=== PATIENT | male | born 1970 | race Asian ===

== ENCOUNTER 2020-06-29 07:40 | Emergency (ER) | payer OTHER ==
--- OUTSIDE RECORDS SUMMARY | 2020-06-29 07:49 | XMS REPORT | Continuity of Care Document ---
:1970 Author Organization [facility] t Address [address] [place] [address] Dr. Benitez. [address] [place] [id number] Care Team Providers Name Role Phone Nikhil RICHARDSON Attending Clinician Unavailable Problems This patient has no known problems. Allergies, Adverse Reactions, Alerts This patient has no known allergies or adverse reactions. Medications This patient has no known medications. Procedures This patient has no known procedures. Encounters Start End Encounter Admission Attending Care Care Encounter Source Date/Time Date/Time Type Type Clinicians Facility Department ID 2020-04-20 2020-04-20 Outpatient GRACY RICHARDSON [facility] [id number] Access 00:00:00 00:00:00 [facility] Results This patient has no known results.
--- OUTSIDE RECORDS SUMMARY | 2020-06-29 07:49 | XMS REPORT | Continuity of Care Document ---
:1970 Author Organization [facility] Address [address] [place] [address] Phone Care Team Providers Name Role Phone No Information Unavailable Unavailable Allergies, Adverse Reactions, Alerts Substance Reaction Status Criticality No Information Medications Medication Instructions Dosage Effective Dates Status Comment s (start - stop) lovastatin 40 mg take 1 tablet by Oral - Activ e tablet route with the evening meal 1 time per day --please provide patient education Norvasc 5 mg tablet take 1 tablet by Oral - Ac tive route 1 time per day --please provide patient education-- aspirin 81 mg chew 1 tablet (81 mg) - Active chewable tablet by oral route once daily Problems Condition Effective Dates (start - stop) Clinical Status C omments No Information Procedures Procedure Date nfectious agent detection by nucleic acid (DNA or OFFICE/OUTPATIENT VISIT EST Results Test Name Date and Time Measure Units Reference Range Abnormal Flag St atus Comments Panel Description: SARS-CoV-2 (COVID-19) RNA [Presence] in U nspecified Final specimen by MAYURI with probe detection SARS-CoV-2, MAYURI Not Not Final Test ing was performed 00:00:00 Detected Detected using the Apt mariaa SARS-CoV-2 assay .This test was develop ed and its performance characteristics determinedby [employer]. Th is test has not been FDA cleared orapprov ed. This test has be en authorized by RONALD Storey under an Emergency UseAuthorization (EUA). This test is onl y authorized for t he duration oftime the declaration that circumstances ex ist justifying theauthorization of the emergency use of in vitro diagnostic tests fordetection of SARS-CoV-2 virus and/or diagnosis of COV ID-19 infectionunder s ection 564(b)(1) of the Act, 21 U.S.C. 360bbb-3(b)(1), unlessthe author ization is terminated or revoked sooner.W hen diagnostic testi ng is negative, the possibility of a falsenegative re sult should be consid ered in the context of a patient'srecent exposures and th e presence of clin ical signs and symptomsconsiste nt with COVID-19. An ind ividual without symptoms of COVID-19and who is not shedding SARS-Co V-2 virus would expe ct to have anegative ( not detected) result in this assay.
<b r/>Perf ormed by:
Afsaneh Johsua (HD)<br/ >
Panel Description: SARS-CoV-2 (COVID-19) RNA [Presence] in U nspecified Final specimen by MAYURI with probe detection SARS-CoV-2, MAYURI Detected Not Detected A Final Testing was performed 00:00:00 using the Aptim a SARS-CoV-2 assay .This test was develop ed and its performance characteristics determinedby [employer]. Th is test has not been FDA cleared orapproved. This test has been authori zed by FDA under an Emily rgency UseAuthorization (EUA). This test is onl y authorized for t he duration oftime the declaration that circumstances ex ist justifying theauthorization of the emergency use of in vitro diagnostic tests fordetection of SARS-CoV-2 virus and/or diagnosis of COV ID-19 infectionunder s ection 564(b)(1) of the Act, 21 U.S.C. 360bbb-3( b)(1), unlessthe author ization is terminated or revoked sooner.When diag nostic testing is negat guerita, the possibility of a falsenegative re sult should be consid ered in the context of a patient'srecent exposures and th e presence of clin ical signs and symptomsconsiste nt with COVID-19. An ind ividual without symptoms of COVID-19and who is not shedding SARS-Co V-2 virus would expe ct to have anegative ( not detected) result in this assay.
<b r/>Perfo rmed by:
Lab Chasity Harrison (HD)<br/ >
NOTE: This patient has pending results not included in this document. Advance Directives Directive Yes / No Effective Date File Name No Information Encounters Encounter Practice Location Reason(s) Diagnoses Date Provider Provide rs Description For Visit Copied on [facility] No Information No [facility], [address], [facility], tel:[phone] [facility] No Information RICHARDSON [facility], 400 [facility] ANCILLARY SPECIALIST PUJA. 400 [facility] 0 [facility], [place], [place], [facility], [id number], tel: [place]. [phone] tel:[phone] OFFICE/OUTPA [facility] COVID-19 COVID-19 Acute Mar- JONAH AVILA VISIT [facility], 400 [facility] ANCILLARY SPECIALIST test Respiratory 09433 EST [facility] results [facility] 0 [facility], (chief DR, [place] [address], [place], complaint) [place], [place], [address] [place] [id number], tel: [place]. [phone] tel:[phone] [facility] No Information Mar- No [facility], [address], [facility], tel: [phone] [facility] No Information RICHARDSON [facility], 400 PUJA. [address], [place], [place], [facility], [id number], tel: US. [phone] tel:[phone] [facility] No Information Ted-2 NEGRO lt, 400 [facility] KATELINE. [facility] 9 400 [facility], [place], [address], [place] [id number], tel: [place]. [phone] tel: [phone] [facility] Vitamin D Ted-1 NEGRO lth, 400 [facility] deficiency, 9-201 KATELINE. [facility] unspecified 9 400 [facility], [id number] [facility], for [place], [place], [place], [address], [place] exam w [id number], tel: abnormal [place]. [phone] findings tel: [phone] for screening for malignant neoplasm of prostate IES18Uazh mass index (BMI) 23.0-23.9, adult ICD10 [facility] Essential Ted-1 SHANKS lth, 400 [facility] ANCILLARY SPECIALIST (primary) 9-201 SOLA. . [facility] hypertension [address] [place], [address] [place] [address], [address], [place] tel:[phone] [facility] Hyperlipidemia Ted-1 KRUSLESKI lth, 400 [facility] , unspecified 9- JAD. . [facility] ICD10 [address] [place], [address], [place] tel: [phone] [facility] No Information Dec-2 NEGRO lth, 400 [facility] 0-201 KATELINE. [facility] 8 400 [facility], [facility], [place], [address], [place] [id number], tel: US. [phone] tel: [phone] [facility] Body mass Dec-1 NEGRO lth, 400 [facility] ANCILLARY SPECIALIST index (BMI) 9-201 KATELINE. [facility] 23.0-23.9, 8 400 [facility], adult ICD10 [facility], [place], [address], [place] [id number], tel: US. [phone] tel: [phone] [facility] Hyperlipidemia Dec-1 KRUSLESKI lth, 400 [facility] , unspecified 9-201 JAD. . [facility] ICD10 [address] [place], [address], [place] tel: [phone] [facility] Essential Dec-1 SHANKS lth, 400 [facility] ANCILLARY SPECIALIST (primary) 9-201 SOLA. . [facility] hypertension [address], ICD10 [place], [facility], tel: [phone] [facility] No Information Apr-0 NEGRO lth, 400 [facility] ANCILLARY SPECIALIST 2-201 KATELINE. [facility] 8 400 [facility], [place], [place], [place], [facility], [id number], tel: US. [phone] tel:[phone] [facility] Body mass Mar-2 ENGRO lth, 400 [facility] ANCILLARY SPECIALIST index (BMI) 1-201 KATELINE. [facility] 23.0-23.9, 8 400 [facility], adult ICD10 [place], [place], [place], [facility], [id number], tel: US. [phone] tel: [phone] [facility] Essential Mar-2 SHANKS lth, 400 [facility] ANCILLARY SPECIALIST (primary) 1-201 SOLA. . [facility] hypertension [address] [place], ICD10 [place], [place], [facility], tel: [phone] [facility] Hyperlipidemia Mar-2 KRUSLESKI lth, 400 [facility] ANCILLARY SPECIALIST , unspecified 1-201 JAD. . [facility] ICD10 [address] [place], [place], [facility], tel: [phone] [facility] No Information Stuart-0 SHANKS lth, 400 [facility] ANCILLARY SPECIALIST 9-201 SOLA. . [address], [facility], tel: [phone] [facility] No Information Stuart-0 SHANKS lth, 400 [facility] ANCILLARY SPECIALIST 6-201 SOLA. . [address], [facility], tel: [phone] [facility] Hyperlipidemia Stuart-0 KRUSLESKI lth, 400 [facility] ANCILLARY SPECIALIST , unspecified 6-201 JAD. . [facility] ICD10 [address] [place] [address], [facility], tel: [phone] [facility] No Information May-2 SHANKS lth, 400 [facility] ANCILLARY SPECIALIST 7-201 SOLA. . [address], [address], [facility]: [phone] [facility] Information May-2 SHANKS lth, 400 [facility] ANCILLARY SPECIALIST 6-201 SOLA. . [address], [address], tel: [phone] [facility] Essential May-2 SHANKS lth, 400 [facility] ANCILLARY SPECIALIST (primary) 2-201 SOLA. . [facility] hypertension 7 [place], [id number] [place], [facility] [place], abnormal [address], [place] findings of tel: blood [phone] chemistry ICD10 [facility] Hyperlipidemia May-2 KRUSLESKI lth, 400 [facility] ANCILLARY SPECIALIST , unspecified 2-201 JAD. . [facility] ICD10 [address] [place] [address], [address], tel: [phone] [facility] No Information May-1 SHANKS lth, 400 [facility] ANCILLARY SPECIALIST 8-201 SOLA. . [address], [address], tel: [phone] [facility] No Information May-1 SHANKS lth, 400 [facility] ANCILLARY SPECIALIST 6-201 SOLA. . [address], [address], tel: [phone] [facility] Hyperlipidemia May-1 KRUSLESKI lth, 400 [facility] ANCILLARY SPECIALIST , unspecified 1-201 JAD. . [facility] ICD10 [address] [place] [address], [place], [address], tel: [phone] [facility] Essential May-1 SHANKS lth, 400 [facility] ANCILLARY SPECIALIST (primary) 1-201 SOLA. . [facility] hypertension [address] [place], ICD10 [place], [address], [place] tel: [phone] [facility] No Information Mar-2 KRUSLESKI lth, 400 [facility] ANCILLARY SPECIALIST 7-201 JAD. . [address], [address], tel: [phone] [facility] No Information Mar-1 KRUSLESKI lth, 400 [facility] ANCILLARY SPECIALIST 0-201 AJD. . [facility] [address] [place], [address], [place] tel: [phone] [facility] No Information Mar-0 VASILEUSTALIAKI [facility], 400 [facility] 5-201 DAVID. Estevez [facility] [address] [place], [address], [place] tel: [phone] [facility] Jayy Pure Mar-0 KRUSLESKI [facility], 400 [facility] ANCILLARY SPECIALIST hypercholester 4-201 DAVID. Estevez [facility] olemiaEssentia 6 [place], (primary) [facility], ICD10 [address], [place] tel: [phone] Family History Family Member Diagnosis Age At Onset No Information Immunizations Vaccine Date Status Comments No Information Payers Payer name Insurance type Covered republican ID Authorization(s ) No Information Social History Type Description Quantity Date Captured Comments Alcohol Use Details Unknown Caffeine Use Details Unknown Tobacco Use Status No Information Smoking Status No Information Sex Male Vital Signs Date / Height Weight BMI Pulse Blood Temperature Respiratory Body Head BMI Pulse Inhaled Time: Rate Pressure Rate Surface Circumference percenti le Ox Ox Area 62.00 128.20 23.4 78 154/98 97.80 F 16 /min -2018 in lbs 0 /min mm[Hg] 11:55 kg/m AM eter (2) 62.50 130.00 23.4 70 136/84 96.20 F 18 /min -2017 in lbs 0 /min mm[Hg] 7:15 kg/m AM eter () 62.00 129.00 23.6 70 152/97 96.50 F 18 /min -2017 in lbs 0 /min mm[Hg] 7:27 kg/m AM eter () 62.00 126.80 23.2 68 140/94 96.90 F 18 /min -2016 in lbs 0 /min mm[Hg] 10:17 kg/m AM eter (2) 130/86 -2017 mm[Hg] 10:32 AM 62.00 123.60 22.6 63 133/88 96.60 F 18 /min in lbs 0 /min mm[Hg] 10:57 kg/m AM kleber (2) Chief Complaint And Reason For Visit No Information Reason For Referral Reason For Referral No Information Plan Of Treatment Date Type Action Status No Information History Of Present Illness Encounter Date Complaint History Of Present I llness COVID-19 test results This is a teleheal th visit. Patient provided verbal consent to th is encounter. Patient understands the limi tations of such a visit.. Called patient with regards to COVID-19 test results. Patient hailey re that this encounter is primarily to discuss test results; and that patient is to follow up with PCP for further plan of care. Reports un known exposure to known case of COVID-19. Current ly having symptoms of cough Functional Status Date Functional Assessment No Information Medications Administered Medication Instructions Dosage Effective Dates (start - stop) Sta tus Comments No Information Instructions Date Instruction Additional Informati on No Information Assessments Type Assessment Date assessment COVID-19 Acute Respiratory Disease assessment Cough Goals Health Concern Goal Type Priority Status Date No Information Medical Equipment Description Device Laneview Device Identifier Effective Tom es (start - stop) Status No Information Mental Status Date Cognitive Assessment No Information Health Concerns Observation Date No Information Concern Status Date No Information
[2020-06-29] MEDS ORDERED: NA CHLORIDE 0.9% 1,000 ML ONE (08:20)
[2020-06-29] MEDS ORDERED: MECLIZINE HCL 12.5 MG TAB ONE (08:20)
[2020-06-29] MEDS ORDERED: LABETALOL HCL 100 MG/20 ML ONE (08:20)
[2020-06-29] MEDS ORDERED: ONDANSETRON 4 MG/2 ML VIAL ONE (08:20)
[2020-06-29] MEDS ORDERED: LABETALOL 20 MG/4ML SYRINGE IV ONE ×3 (08:21→11:16)
[2020-06-29 08:26] LABS: Absolute Lymphocytes (CBC) 1.9 K/uL (0.7-4.9); Basophils % 0.4 % (0-1.3); Hematocrit 44.3 % (39.6-49.0); Lymphocytes % 33.6 % (15.3-44.8); MPV 7.4 fL (7.6-11.3); RBC Red Blood Cell Count 4.98 M/uL (4.33-5.43)
--- NOTE | 2020-06-29 08:43 | RAD REPORT ---
EXAM DESCRIPTION: Jacki Single View06/29/2020 8:18 am CLINICAL HISTORY: Cough COMPARISON: none FINDINGS: The lungs appear clear of acute infiltrate. The heart is normal size IMPRESSION: No acute abnormalities displayed
[2020-06-29 08:51] LABS: ALT/SGPT 34 U/L (12-78); AST/SGOT 22 U/L (15-37); Alkaline Phosphatase 59 U/L (45-117); BUN Blood Urea Nitrogen 14 mg/dL (7-18); Bicarbonate 23 mmol/L (21-32); Bilirubin Direct < 0.1 mg/dL (0-0.2); Bilirubin Total 0.4 mg/dL (0.2-1.0); Glucose Level 181 mg/dL (74-106); Magnesium 1.9 mg/dL (1.8-2.4); Potassium 3.2 mmol/L (3.5-5.1); Protein, Total 7.7 g/dL (6.4-8.2); Sodium Level 138 mmol/L (136-145); Troponin (Emerg Dept Use Only) < 0.02 ng/mL (0.0-0.045)
[2020-06-29 08:52] LABS: NT PRO-BNP < 5 pg/mL (<125)
--- NOTE | 2020-06-29 08:55 | RAD REPORT ---
EXAM DESCRIPTION: CT - Head Brain Wo Cont - 06/29/2020 8:32 am CLINICAL HISTORY: Dizziness COMPARISON: None. TECHNIQUE: Computed axial tomography of the head was obtained. IV contrast was not requested. All CT scans are performed using dose optimization technique as appropriate and may include automated exposure control or mA/KV adjustment according to patient size. FINDINGS: An intracranial bleed is not seen . The ventricles are normal in caliber. No extra-axial fluid collection is noted. Fluid within the sinuses/ mastoids is not seen. Moderate mucoperiosteal thickening left maxillary sin us compatible with chronic sinusitis IMPRESSION: No acute intracranial abnormality is seen. If patient's symptoms persist MRI of the bra in would be recommended.
--- NOTE | 2020-06-29 09:38 | ER ---
Nurse's Notes [facility] Name: Ike Neal Age: 50 yrs Sex: Male : 1970 Arrival Date: 06/29/2020 Time: 07:47 Bed 5 Private MD: Diagnosis: Essential (primary) hypertension;Dizziness and giddiness;Hypokalemia Presentation: 06/29 07:42 Chief complaint: EMS states: pt was fishing this morning, suddenly became nauseous, tw2 vomited, was sitting in truck when we arrived, he was diaphoretic and dizzy, states hx HTN, but has NOT taken his blood pressure medicine this morning, 185/120, hr 87, 100% RA. Coronavirus screen: At this time, the client does not indicate any symptoms associated with coronavirus-19. Ebola Screen: Patient denies travel to an Ebola-affected area in the 21 days before illness onset. Initial Sepsis Screen: Does the patient meet any 2 criteria? No. Patient's initial sepsis screen is negative. Does the patient have a suspected source of infection? No. Patient's initial sepsis screen is negative. Risk Assessment: Do you want to hurt yourself or someone else? Patient reports no desire to harm self or others. Onset of symptoms was June 29, 2020. 07:42 Method Of Arrival: EMS: [facility] tw2 07:42 Acuity: SMITH 3 tw2 Triage Assessment: 07:51 General: Appears in no apparent distress. slender, Behavior is calm, cooperative, tw2 appropriate for age. Pain: Denies pain. Derm: Skin is intact, is healthy with good turgor, is thin, Skin is clammy. Historical: - Allergies: 07:52 No Known Allergies; tw2 - Home Meds: 07:52 "unknown BP medicine" [Active]; tw2 - PMHx: 07:52 Hypertension; tw2 - Immunization history:: Adult Immunizations unknown. - Social history:: Smoking status: unknown. Screenin:47 Abuse screen: Denies threats or abuse. Denies injuries from another. Nutritional jl7 screening: No deficits noted. Tuberculosis screening: No symptoms or risk factors identified. Fall Risk None identified. Assessment: 07:51 General: Appears in no apparent distress. slender, Behavior is calm, cooperative, tw2 appropriate for age. Pain: Denies pain. Neuro: Level of Consciousness is awake, alert, obeys commands, Oriented to person, place. Cardiovascular: Heart tones S1 S2 Patient's skin is warm and dry. Respiratory: Airway is patent Respiratory effort is even, unlabored, Respiratory pattern is regular, symmetrical, Breath sounds are clear bilaterally. GI: Abdomen is flat, Bowel sounds present X 4 quads. Reports nausea, vomiting, "earlier but not now, i did throw up after i tried to drink some water" Patient currently denies abdominal pain. : No signs and/or symptoms were reported regarding the genitourinary system. EENT: No signs and/or symptoms were reported regarding the EENT system. Derm: Skin is intact, is healthy with good turgor, Skin is clammy, Skin temperature is warm. Musculoskeletal: Range of motion: intact in all extremities. 08:28 Reassessment: pt taken via stretcher to CT at this time. tw2 08:35 Reassessment: pt back from CT at this time., NAD. tw2 09:32 Reassessment: Patient appears in no apparent distress at this time. Patient and/or tw2 family updated on plan of care and expected duration. Pain level reassessed. Patient is alert, oriented x 3, equal unlabored respirations, skin warm/dry/pink. Patient states feeling better. Patient states symptoms have improved. 09:57 Reassessment: Pt will be discharged once BP has decreased. jl7 10:22 Reassessment: pt c/o "dizziness again", provider notified of pts condition and BP at 2 this time. 10:25 Reassessment: ERD at bedside. jl7 11:02 Reassessment: Patient appears in no apparent distress at this time. Patient and/or tw2 family updated on plan of care and expected duration. Pain level reassessed. Patient is alert, oriented x 3, equal unlabored respirations, skin warm/dry/pink. 11:17 Reassessment: US at bedside at this time. tw2 11:57 Reassessment: pt requests to get up and go to the restroom at this time, urine specimen tw2 cup provided, pt steady in gait, nad. 12:39 Reassessment: Patient appears in no apparent distress at this time. Patient and/or tw2 family updated on plan of care and expected duration. Pain level reassessed. Patient is alert, oriented x 3, equal unlabored respirations, skin warm/dry/pink. 12:44 Reassessment: pt states "i am ready to go home now", provider notified. tw2 13:10 Reassessment: Patient appears in no apparent distress at this time. Patient and/or tw2 family updated on plan of care and expected duration. Pain level reassessed. Patient is alert, oriented x 3, equal unlabored respirations, skin warm/dry/pink. 13:16 Reassessment: Patient appears in no apparent distress at this time. Patient and/or tw2 family updated on plan of care and expected duration. Pain level reassessed. Patient is alert, oriented x 3, equal unlabored respirations, skin warm/dry/pink. Vital Signs: 07:42 BP 165 / 101; Pulse 75; Resp 17; Temp 97.8(O); Pulse Ox 100% on R/A; Weight 58.06 kg tw2 (R); Height 5 ft. 4 in. (162.56 cm); Pain 0/10; 08:36 BP 170 / 106; Pulse 66; Resp 15 S; Pulse Ox 100% on R/A; jl7 08:45 BP 152 / 103; Pulse 74; Resp 17; Pulse Ox 100% on R/A; tw2 09:15 BP 161 / 107; Pulse 74; Resp 17; Pulse Ox 100% on R/A; tw2 09:27 BP 159 / 106; Pulse 78; Resp 17; Pulse Ox 100% on R/A; tw2 09:45 BP 161 / 110; Pulse 74; Resp 17; Pulse Ox 100% ; jl7 10:00 BP 171 / 109; Pulse 74; Resp 17; Pulse Ox 99% on R/A; tw2 10:21 BP 196 / 123; Pulse 72; Resp 15; Pulse Ox 100% ; jl7 10:28 BP 169 / 110 LA; Pulse 74; Resp 17; Pulse Ox 100% on R/A; tw2 10:28 BP 162 / 114 RA; Pulse 71; Resp 17; Pulse Ox 100% on R/A; tw2 10:45 BP 153 / 109; Pulse 64; Resp 17; Pulse Ox 100% on R/A; tw2 11:11 BP 141 / 99; Pulse 76; Resp 17; Pulse Ox 100% on R/A; tw2 11:30 BP 145 / 100; Pulse 83; Resp 16; Pulse Ox 100% on R/A; tw2 12:10 BP 164 / 104; Pulse 72; Resp 15; Pulse Ox 100% ; jl7 12:30 BP 157 / 107; Pulse 72; Resp 17; Pulse Ox 100% on R/A; tw2 12:45 BP 157 / 107; Pulse 77; Resp 16; Pulse Ox 100% on R/A; tw2 13:10 BP 149 / 108; Pulse 76; Resp 17; Pulse Ox 100% on R/A; tw2 07:42 Body Mass Index 21.97 (58.06 kg, 162.56 cm) tw2 07:42 provider notified tw2 ED Course: 07:44 Arm band placed on. tw2 07:47 Patient arrived in ED. aa5 07:47 Patient has correct armband on for positive identification. Placed in gown. Bed in low jl7 position. Call light in reach. Side rails up X 1. Pulse ox on. NIBP on. 07:48 Saray Prajapati, ROCK is Primary Nurse. tw2 07:48 Rafael Galindo MD is Attending Physician. swapna 07:51 Triage completed. tw2 08:00 Inserted saline lock: 20 gauge in right antecubital area, using aseptic technique. tw2 Blood collected. 08:05 EKG done, by ED staff, reviewed by Rafael Galindo MD. em1 08:30 CT completed. Patient tolerated procedure well. Patient moved to CT via stretcher. sw Patient moved back from CT. 08:49 CT Head Brain wo Cont In Process Unspecified. EDMS 09:36 Gabe Villar MD is Referral Physician. swapna 09:45 Awaiting: re-evaulation of BP and BP medication PRIOR to discharge. tw2 11:01 Aakash Hernandez MD is Hospitalizing Provider. swapna 11:56 Carotid Artery Bilateral In Process Unspecified. EDMS 13:02 Gabe Villar MD is Referral Physician. swapna 13:02 Rodney Hurley MD is Referral Physician. swapna 13:16 No provider procedures requiring assistance completed. IV discontinued, intact, tw2 bleeding controlled, No redness/swelling at site. Pressure dressing applied. Administered Medications: 08:13 Drug: Zofran (Ondansetron) 4 mg Route: IVP; Site: right antecubital; jl7 09:33 Follow up: Response: No adverse reaction tw2 08:15 Drug: NS 0.9% 1000 ml Route: IV; Rate: 125 ml/hr; Site: right antecubital; jl7 13:15 Follow up: Response: No adverse reaction; IV Status: Order to discontinue infusion tw2 08:17 Drug: Trandate 5 mg Route: IVP; Site: right antecubital; jl7 09:33 Follow up: Response: No adverse reaction; Blood pressure is unchanged tw2 08:20 Drug: NS 0.9% 500 ml Route: IV; Rate: bolus; Site: right antecubital; jl7 09:20 Follow up: Response: No adverse reaction; IV Status: Completed infusion; IV Intake: tw2 500ml 08:20 Drug: Meclizine 50 mg Route: PO; jl7 09:33 Follow up: Response: No adverse reaction; Marked relief of symptoms tw2 09:38 Drug: Trandate 20 mg Route: IVP; Site: right antecubital; tw2 10:22 Follow up: Response: No adverse reaction; Blood pressure is unchanged; provider tw2 notified. 09:38 Drug: Norvasc 10 mg Route: PO; tw2 10:23 Follow up: Response: No adverse reaction tw2 09:56 Drug: Potassium Effervescent Tablet 25 mEq Route: PO; jl7 10:23 Follow up: Response: No adverse reaction tw2 11:02 Drug: Aspirin 81 mg Route: PO; tw2 13:10 Follow up: Response: No adverse reaction tw2 11:02 Drug: foLIC Acid 1 mg Route: IVPB; Site: right antecubital; tw2 11:03 Follow up: IV Status: Completed infusion tw2 13:11 Follow up: Response: No adverse reaction tw2 11:08 Drug: Trandate 20 mg Route: IVP; Site: right antecubital; tw2 11:30 Follow up: Response: No adverse reaction; Blood pressure is unchanged; Blood pressure tw2 is unchanged, provider notified. Intake: 09:20 IV: 500ml; Total: 500ml. tw2 Outcome: 09:36 Discharge ordered by . swapna 11:01 Decision to Hospitalize by Provider. swapna 13:03 Discharge ordered by . swapna 13:16 Discharged to home ambulatory. tw2 13:16 Condition: stable 13:16 Discharge instructions given to patient, family, Instructed on discharge instructions, follow up and referral plans. medication usage, Demonstrated understanding of instructions, follow-up care, medications, Prescriptions given X 3. 13:16 Patient left the ED. tw2 Signatures: Dispatcher [employer] EDMS Rafael Galindo MD MD cha Martinez, Eric em1 Yara Garduno, RN RN aa5 Mis Ruff Tara RN RN tw2 Allan Kaba RN RN jl7
--- NOTE | 2020-06-29 09:38 | EDPHYS ---
Physician Documentation [facility] Name: Ike Neal Age: 50 yrs Sex: Male : 1970 Arrival Date: 06/29/2020 Time: 07:47 Bed 5 Private MD: DAVID Physician Rafael Galindo HPI: 06/29 08:00 This 50 yrs old Male presents to ER via EMS with complaints of Nausea/Vomiting. swapna 08:00 The patient presents to the emergency department with nausea, vomiting. Onset: The swapna symptoms/episode began/occurred just prior to arrival, this morning. Possible causes: vertigo. Historical: - Allergies: :52 No Known Allergies; tw2 - Home Meds: :52 "unknown BP medicine" [Active]; tw2 - PMHx: 07:52 Hypertension; tw2 - Immunization history:: Adult Immunizations unknown. - Social history:: Smoking status: unknown. ROS: 08:01 Constitutional: Negative for fever, chills, and weight loss, Eyes: Negative for injury, swapna pain, redness, and discharge, ENT: Negative for injury, pain, and discharge, Neck: Negative for injury, pain, and swelling, Cardiovascular: Negative for chest pain, palpitations, and edema, Respiratory: Negative for shortness of breath, cough, wheezing, and pleuritic chest pain, Abdomen/GI: Negative for abdominal pain, nausea, vomiting, diarrhea, and constipation, Back: Negative for injury and pain, : Negative for injury, bleeding, discharge, and swelling, MS/Extremity: Negative for injury and deformity, Skin: Negative for injury, rash, and discoloration, Psych: Negative for depression, anxiety, suicide ideation, homicidal ideation, and hallucinations, Allergy/Immunology: Negative for hives, rash, and allergies, Endocrine: Negative for neck swelling, polydipsia, polyuria, polyphagia, and marked weight changes, Hematologic/Lymphatic: Negative for swollen nodes, abnormal bleeding, and unusual bruising. 08:01 Neuro: Positive for dizziness. Exam: 08:01 Constitutional: This is a well developed, well nourished patient who is awake, alert, swapna and in no acute distress. Head/Face: Normocephalic, atraumatic. Eyes: Pupils equal round and reactive to light, extra-ocular motions intact. Lids and lashes normal. Conjunctiva and sclera are non-icteric and not injected. Cornea within normal limits. Periorbital areas with no swelling, redness, or edema. ENT: Nares patent. No nasal discharge, no septal abnormalities noted. Tympanic membranes are normal and external auditory canals are clear. Oropharynx with no redness, swelling, or masses, exudates, or evidence of obstruction, uvula midline. Mucous membranes moist. Neck: Trachea midline, no thyromegaly or masses palpated, and no cervical lymphadenopathy. Supple, full range of motion without nuchal rigidity, or vertebral point tenderness. No Meningismus. Chest/axilla: Normal chest wall appearance and motion. Nontender with no deformity. No lesions are appreciated. Cardiovascular: Regular rate and rhythm with a normal S1 and S2. No gallops, murmurs, or rubs. Normal PMI, no JVD. No pulse deficits. Respiratory: Lungs have equal breath sounds bilaterally, clear to auscultation and percussion. No rales, rhonchi or wheezes noted. No increased work of breathing, no retractions or nasal flaring. Abdomen/GI: Soft, non-tender, with normal bowel sounds. No distension or tympany. No guarding or rebound. No evidence of tenderness throughout. Back: No spinal tenderness. No costovertebral tenderness. Full range of motion. Skin: Warm, dry with normal turgor. Normal color with no rashes, no lesions, and no evidence of cellulitis. MS/ Extremity: Pulses equal, no cyanosis. Neurovascular intact. Full, normal range of motion. Neuro: Awake and alert, GCS 15, oriented to person, place, time, and situation. Cranial nerves II-XII grossly intact. Motor strength 5/5 in all extremities. Sensory grossly intact. Cerebellar exam normal. Normal gait. Psych: Awake, alert, with orientation to person, place and time. Behavior, mood, and affect are within normal limits. 08:01 Eyes: Pupils: no acute changes, equal, round, and reactive to light and accomodation, Extraocular movements: intact throughout, Conjunctiva: normal, no acute changes, Corneas: are normal, Nystagmus: is not appreciated, no acute changes. 08:01 Neck: External neck: is normal, C-spine: appears grossly normal, Thyroid: appears normal, Trachea: is midline with no obvious abnormalities, no acute changes, ROM/movement: is normal, no acute changes, Lymph nodes: no appreciated lymphadenopathy. 08:01 Cardiovascular: Rate: normal, Rhythm: regular, Pulses: Pulses are 4+ in bilateral radial, brachial, femoral, popliteal, posterior tibial and and dorsalis pedis arteries.. Heart sounds: normal, Edema: is not appreciated, JVD: is not appreciated. Vital Signs: 07:42 BP 165 / 101; Pulse 75; Resp 17; Temp 97.8(O); Pulse Ox 100% on R/A; Weight 58.06 kg tw2 (R); Height 5 ft. 4 in. (162.56 cm); Pain 0/10; 08:36 BP 170 / 106; Pulse 66; Resp 15 S; Pulse Ox 100% on R/A; jl7 08:45 BP 152 / 103; Pulse 74; Resp 17; Pulse Ox 100% on R/A; tw2 09:15 BP 161 / 107; Pulse 74; Resp 17; Pulse Ox 100% on R/A; tw2 09:27 BP 159 / 106; Pulse 78; Resp 17; Pulse Ox 100% on R/A; tw2 09:45 BP 161 / 110; Pulse 74; Resp 17; Pulse Ox 100% ; jl7 10:00 BP 171 / 109; Pulse 74; Resp 17; Pulse Ox 99% on R/A; tw2 10:21 BP 196 / 123; Pulse 72; Resp 15; Pulse Ox 100% ; jl7 10:28 BP 169 / 110 LA; Pulse 74; Resp 17; Pulse Ox 100% on R/A; tw2 10:28 BP 162 / 114 RA; Pulse 71; Resp 17; Pulse Ox 100% on R/A; tw2 10:45 BP 153 / 109; Pulse 64; Resp 17; Pulse Ox 100% on R/A; tw2 11:11 BP 141 / 99; Pulse 76; Resp 17; Pulse Ox 100% on R/A; tw2 11:30 BP 145 / 100; Pulse 83; Resp 16; Pulse Ox 100% on R/A; tw2 12:10 BP 164 / 104; Pulse 72; Resp 15; Pulse Ox 100% ; jl7 12:30 BP 157 / 107; Pulse 72; Resp 17; Pulse Ox 100% on R/A; tw2 12:45 BP 157 / 107; Pulse 77; Resp 16; Pulse Ox 100% on R/A; tw2 13:10 BP 149 / 108; Pulse 76; Resp 17; Pulse Ox 100% on R/A; tw2 07:42 Body Mass Index 21.97 (58.06 kg, 162.56 cm) tw2 07:42 provider notified tw2 MDM: 07:48 Patient medically screened. swapna 08:05 Differential diagnosis: gastritis. Differential diagnosis: cardiac arrhythmia, CVA, swapna generalized weakness, hypovolemia, idiopathic dizziness, near-syncope, TIA, vertigo. Data reviewed: vital signs, nurses notes, lab test result(s), EKG, radiologic studies, CT scan, plain films. Data interpreted: forepart laster: rate is 75 beats/min, rhythm is regular, Pulse oximetry: on room air is 100 %. Test interpretation: by ED physician or midlevel provider: ECG, plain radiologic studies. Counseling: I had a detailed discussion with the patient and/or guardian regarding: the historical points, exam findings, and any diagnostic results supporting the discharge/admit diagnosis, the presence of at least one elevated blood pressure reading (>120/80) during this emergency department visit, lab results, radiology results, the need for outpatient follow up, for definitive care, a neurologist. Medication response: Zofran markedly relieved the patient's nausea. meclizine. 09:34 ED course: improved, told bp meds are essential. [facility] 06/29 08:00 Order name: Basic Metabolic Panel; Complete Time: 09:20 [facility] 06/29 08:00 Order name: CBC with Diff [facility] 06/29 08:00 Order name: LFT's; Complete Time: 09:20 [facility] 06/29 08:00 Order name: Magnesium; Complete Time: 09:20 [facility] 06/29 08:00 Order name: NT PRO-BNP; Complete Time: 09:20 [facility] 06/29 08:00 Order name: Troponin (emerg Dept Use Only); Complete Time: 09:20 [facility] 06/29 08:00 Order name: XRAY Chest (1 view) [facility] 06/29 08:00 Order name: CT Head Brain wo Cont; Complete Time: 09:20 [facility] 06/29 08:30 Order name: CBC with Automated Diff; Complete Time: 08:48 [facility] 06/29 08:51 Order name: RAD; Complete Time: 09:20 [facility] 06/29 10:57 Order name: US Carotid Artery Bilateral; Complete Time: 13:00 [facility] 06/29 12:11 Order name: Urine Dipstick--Ancillary (enter results); Complete Time: 13:00 06/29 08:00 Order name: EKG; Complete Time: 08:13 [facility] 06/29 08:00 Order name: Cardiac monitoring; Complete Time: 08:22 [facility] 06/29 08:00 Order name: EKG - Nurse/Tech; Complete Time: 08:05 [facility] 06/29 08:00 Order name: IV Saline Lock; Complete Time: 08:21 [facility] 06/29 08:00 Order name: Labs collected and sent; Complete Time: 08: [facility] 06/29 08:00 Order name: O2 Per Protocol; Complete Time: 08: [facility] 06/29 08:00 Order name: O2 Sat Monitoring; Complete Time: 08:21 [facility] 06/29 08:00 Order name: Urine Dipstick-Ancillary (obtain specimen); Complete Time: 12:10 [facility] 06/29 09:21 Order name: Vital Signs; Complete Time: 09:33 [facility] Administered Medications: 08:13 Drug: Zofran (Ondansetron) 4 mg Route: IVP; Site: right antecubital; jl7 09:33 Follow up: Response: No adverse reaction tw2 08:15 Drug: NS 0.9% 1000 ml Route: IV; Rate: 125 ml/hr; Site: right antecubital; jl7 13:15 Follow up: Response: No adverse reaction; IV Status: Order to discontinue infusion tw2 08:17 Drug: Trandate 5 mg Route: IVP; Site: right antecubital; jl7 09:33 Follow up: Response: No adverse reaction; Blood pressure is unchanged tw2 08:20 Drug: NS 0.9% 500 ml Route: IV; Rate: bolus; Site: right antecubital; jl7 09:20 Follow up: Response: No adverse reaction; IV Status: Completed infusion; IV Intake: tw2 500ml 08:20 Drug: Meclizine 50 mg Route: PO; jl7 09:33 Follow up: Response: No adverse reaction; Marked relief of symptoms tw2 09:38 Drug: Trandate 20 mg Route: IVP; Site: right antecubital; tw2 10:22 Follow up: Response: No adverse reaction; Blood pressure is unchanged; provider tw2 notified. 09:38 Drug: Norvasc 10 mg Route: PO; tw2 10:23 Follow up: Response: No adverse reaction tw2 09:56 Drug: Potassium Effervescent Tablet 25 mEq Route: PO; jl7 10:23 Follow up: Response: No adverse reaction tw2 11:02 Drug: Aspirin 81 mg Route: PO; tw2 13:10 Follow up: Response: No adverse reaction tw2 11:02 Drug: foLIC Acid 1 mg Route: IVPB; Site: right antecubital; tw2 11:03 Follow up: IV Status: Completed infusion tw2 13:11 Follow up: Response: No adverse reaction tw2 11:08 Drug: Trandate 20 mg Route: IVP; Site: right antecubital; tw2 11:30 Follow up: Response: No adverse reaction; Blood pressure is unchanged; Blood pressure tw2 is unchanged, provider notified. Disposition: 06/29/20 13:03 Discharged to Home. Impression: Essential (primary) hypertension, Dizziness and giddiness, Hypokalemia. - Condition is Stable. - Discharge Instructions: Benign Positional Vertigo, Potassium Content of Foods, Dizziness, Hypertension, Vertigo, Hypertension, [id number], How to Take Your Blood Pressure, [id number], Aspirin and Your Heart, Hypokalemia, Motion Sickness, [id number], Dizziness, [id number], Managing Your Hypertension. - Prescriptions for Meclizine 25 mg Oral Tablet - take 1 tablet by ORAL route every 8 hours As needed; 30 tablet. Norvasc 5 mg Oral Tablet - take 1 tablet by ORAL route once daily; 20 tablet. Zofran 4 mg Oral Tablet - take 1 tablet by ORAL route every 12 hours As needed; 20 tablet. - Medication Reconciliation Form, Thank You Letter, Antibiotic Education, Prescription Opioid Use form. - Follow up: Private Physician; When: 2 - 3 days; Reason: Recheck today's complaints, Continuance of care, Re-evaluation by your physician. Follow up: Gabe Villar MD; When: 2 - 3 days; Reason: Recheck today's complaints, Re-evaluation by your physician. Follow up: Rodney Hurley MD; When: 2 - 3 days; Reason: Recheck today's complaints, Continuance of care, Re-evaluation by your physician. Signatures: Dispatcher [employer] Rafael El MD MD cha Wise, Tara RN RN tw2 Allan Kaba RN RN jl7 Corrections: (The following items were deleted from the chart) 10:57 09:36 06/29/2020 09:36 Discharged to Home. Impression: Dizziness and giddiness; swapna Essential (primary) hypertension; Hypokalemia. Condition is Stable. Forms are Medication Reconciliation Form, Thank You Letter, Antibiotic Education, Prescription Opioid Use. Follow up: Private Physician; When: 2 - 3 days; Reason: Recheck today's complaints, Continuance of care, Re-evaluation by your physician. Follow up: Gabe Villar; When: 2 - 3 days; Reason: Recheck today's complaints, Continuance of care, Re-evaluation by your physician. Problem is new. Symptoms have improved. swapna 13:01 11:01 Hospitalization Ordered by Aakash Hernandez MD for Observation. Preliminary swapna diagnosis is Essential (primary) hypertension; Vomiting; Dizziness and giddiness; Hypokalemia. Bed requested for Telemetry/MedSurg (observation). Status is Observation. Condition is Fair. Problem is new. Symptoms have improved. swapna 13:16 13:03 06/29/2020 13:03 Discharged to Home. Impression: Essential (primary) tw2 hypertension; Dizziness and giddiness; Hypokalemia. Condition is Stable. Prescriptions for Meclizine 25 mg Oral Tablet - take 1 tablet by ORAL route every 8 hours As needed; 30 tablet, Norvasc 5 mg Oral Tablet - take 1 tablet by ORAL route once daily; 20 tablet, Zofran 4 mg Oral Tablet - take 1 tablet by ORAL route every 12 hours As needed; 14 tablet. and Forms are Medication Reconciliation Form, Thank You Letter, Antibiotic Education, Prescription Opioid Use. Follow up: Private Physician; When: 2 - 3 days; Reason: Recheck today's complaints, Continuance of care, Re-evaluation by your physician. Follow up: Gabe Villar; When: 2 - 3 days; Reason: Recheck today's complaints, Re-evaluation by your physician. Follow up: Rodney Hurley; When: 2 - 3 days; Reason: Recheck today's complaints, Continuance of care, Re-evaluation by your physician. swapna
[2020-06-29] MEDS ORDERED: AMLODIPINE 10 MG TAB ONE (09:48)
[2020-06-29] MEDS ORDERED: POTASSIUM 25 MEQ EFFERV TAB ONE (09:57)
--- NOTE | 2020-06-29 10:44 | EKG ---
Test Date: 2020-06-29 Test Time: 08:03:31 [employer]: ALLEN MEASUREMENT RESULTS: Intervals: Rate: 73 MI: 210 QRSD: 92 QT: 398 QTc: 438 [place]: P: 68 MI: 210 QRS: 50 T: 52 INTERPRETIVE STATEMENTS: Sinus rhythm with 1st degree AV block Otherwise normal ECG No previous ECG available for comparison Electronically Signed On 06-29-20 10:43:22 CDT by Rodney Hurley
[2020-06-29] MEDS ORDERED: ASPIRIN 81 MG CHEWABLE TABLET ONE (11:15)
[2020-06-29] MEDS ORDERED: FOLIC ACID 5 MG/ML VIAL ONE (11:16)
--- NOTE | 2020-06-29 12:10 | RAD REPORT ---
EXAM DESCRIPTION: USCarotid Artery Bilateral06/29/2020 11:54 am CLINICAL HISTORY: syncope COMPARISON: None FINDINGS: The velocity of the right internal carotid artery equals 62 cm/sec. The right ICA/CCA rati o 0.9 The velocity of the left internal carotid artery equals 67 cm/sec. The left ICA/CCA ratio 1. Minimal plaque is present within the carotid arteries. The vertebral arteries demonstrate antegrade flow IMPRESSION: Minimal plaque within the carotid arteries without evidence of a hemodynamically signifi cant stenosis NASCET criteria used. Mild 0-49% stenosis Moderate 50-69% stenosis Severe 70-99% stenosis
[2020-06-29 12:47] LABS: Urine Blood NEGATIVE (NEG); Urine Glucose NEGATIVE (NEG); Urine Protein NEGATIVE (NEG); Urine pH 8.5 (5.0-7.0)
[2020-06-29 13:39] VITALS: TEMP 97.8
[2020-06-29 13:49] VITALS: O2SAT 100
[2020-06-29 14:00] VITALS: BP 149/108
--- NOTE | 2020-06-29 18:24 | P.CNS ---
Date of Consult: 06/29/20 A 50-year-old male, PMH: HTN, who presented to the ED with dizziness/lightheadedness, feeling of the room spinning, and hypertension. Patient states he was out fishing in the [place], when he developed dizziness and nausea. He had no improvement so he came to the ED. I was consulted for possible observation of the patient in the hospital since he did not have any improvement in his symptoms. On presentation his HR: 75, BP: 165/101, SpO2: 100% on room air, afebrile. He was given Zofran and IV fluids which initially did not help, he was then given Trandate, meclizine and Norvasc 10 mg. Upon my arrival to examine the patient, and he reported resolution of the symptoms and did not want to be admitted to the hospital. Lab workup (CBC, CMP, troponin, BNP) were all rather unremarkable except for mild hypokalemia of 3.2. Patient states he has a history of hypertension but has not been taking his Norvasc for 1-2 weeks. He also states he has had a similar dizziness many years ago that resolved on its own. CXR: No acute abnormalities. CT head: No acute intracranial abnormality is seen. He denies fever, chills, blurry vision, hearing loss, shortness of breath, chest pain, abdominal pain, constipation/diarrhea, dysuria, rashes, lesions, weakness, numbness. Medical history as above. Denies surgical history Denies family history of vertigo, arrhythmias Nonsmoker Drinks 1-3 beers daily Gen: NAD, AAOx3 HEENT: normal conjunctiva, PERRL, EOMI, no nystagmus, no diplopia CV: RRR, no m/r/g, no edema Pulm: CTAB, no w/r/r Abd: soft, NTND Ext: no edema, no tenderness, no erythema Neuro: CN II-XII grossly intact, 5/5 b/l muscle strength in upper/lower extremities A/P Nausea, dizziness -possible vertigo given remote h/o similar episode, workup otherwise negative -pt reports symptoms have resolved and feeling better, does not want to be admitted -able to get out of stretcher and walk to bathroom -give negative workup and resolution of symptoms, I agree that patient can be discharged home -he states he will have close f/u with his PCP in the next 2-3 days, may benefit from meclizine -reiterated importance of taking BP medications as well
== END 2020-06-29 13:16 | disposition home or self-care (01) ==
LOC: ER 07:40
DX: E87.6 Hypokalemia (principal); I10 Essential (primary) hypertension; R42 Dizziness and giddiness
CPT/HCPCS: 96361; 93005; 85025; 80048; 36415; 83735; 80076; 81003; 84484; 83880; 70450; 71045; 93880; 96375; 96374; 99285; J7030; J2405